=== PATIENT | female | born 1955 | race Two or more races ===

== ENCOUNTER 2020-01-16 10:37 | Outpatient (CLI) | payer OTHER ==
[~2020-01-16 10:37] MED LIST: ATENOLOL100 MG; CATAFLAM50 MG PO; DOLOGEN CAPLET1 EACH PO; HYDROCHLOROTHIA25 MG; MEDROL4 MG PO; ORPH100T PO
== END 2020-01-16 10:53 | disposition home or self-care (01) ==
LOC: NUCLEAR 10:37
PROVIDERS: ATTEND Obstetrics & Gynecology
DX: M81.0 Age-related osteoporosis without current pathological fracture (principal)

== ENCOUNTER 2020-01-16 13:38 | Outpatient (CLI) | payer OTHER | END 2020-01-16 13:42 | disposition home or self-care (01) | LOC: MAMO-SONO 13:38 | PROVIDERS: ATTEND Obstetrics & Gynecology | DX: Z12.31 Encounter for screening mammogram for malignant neoplasm of breast (principal); N60.11 Diffuse cystic mastopathy of right breast; N60.12 Diffuse cystic mastopathy of left breast ==

== ENCOUNTER 2020-01-27 11:44 | Outpatient (CLI) | payer OTHER | END 2020-01-27 11:50 | disposition home or self-care (01) | LOC: LAB 11:44 | PROVIDERS: ATTEND Radiology Diagnostic Radiology | DX: N20.0 Calculus of kidney (principal) ==

== ENCOUNTER → 2020-01-31 | Outpatient (CLI) | payer OTHER | END | disposition home or self-care (01) | LOC: MRI 09:51 | PROVIDERS: ATTEND Specialist | DX: C54.1 Malignant neoplasm of endometrium (principal) | CPT/HCPCS: 72197; A9575 ==

== ENCOUNTER 2021-02-13 09:31 | Outpatient (CLI) | payer OTHER | END 2021-02-13 09:39 | disposition home or self-care (01) | LOC: MAMO-SONO 09:31 | PROVIDERS: ATTEND Specialist | DX: N60.11 Diffuse cystic mastopathy of right breast (principal); N60.12 Diffuse cystic mastopathy of left breast; N64.59 Other signs and symptoms in breast ==

== ENCOUNTER → 2022-07-21 | Outpatient (CLI) | payer OTHER ==
[~2022-07-21] MED LIST changes: +KETO10TA2 PO
== END | disposition home or self-care (01) ==
LOC: NUCLEAR 12:01
PROVIDERS: ATTEND Specialist
DX: M81.0 Age-related osteoporosis without current pathological fracture (principal)

== ENCOUNTER 2022-10-07 09:59 | Outpatient (CLI) | payer OTHER | END 2022-10-07 10:09 | disposition home or self-care (01) | LOC: SONOGRAMA 09:59 | PROVIDERS: ATTEND Internal Medicine Cardiovascular Disease | DX: N18.9 Chronic kidney disease, unspecified (principal) ==

== ENCOUNTER 2024-09-22 12:25 | Outpatient (CLI) | payer OTHER | END 2024-09-22 12:27 | disposition home or self-care (01) | LOC: NUCLEAR 12:25 | PROVIDERS: ATTEND Specialist | DX: M81.0 Age-related osteoporosis without current pathological fracture (principal) ==